=== PATIENT | male | born 1970 | race Asian ===

== ENCOUNTER 2017-11-28 10:22 | Emergency (ER) | payer MEDICAID, OTHER ==
[~2017-11-28] VITALS: Ht 157.5 cm; Wt 77.7 kg
[~2017-11-28 10:22] MED LIST: BENA10TA3 PO; DIVA500T52 PO; HALO10TA15 PO; SIMV-261 PO; ZIPR80CA2 PO
[2017-11-28] MEDS ORDERED: DIVALPROEX SODIUM 500 MG ER TABLET PO ONE (11:15)
[2017-11-28] MEDS ORDERED: HALOPERIDOL 5 MG TABLET PO ONE (11:15)
[2017-11-28] MEDS ORDERED: ZIPRASIDONE HCL 40 MG CAPSULE PO ONE (11:15)
[2017-11-28 11:25] LABS: AMPHET/METH SCREEN,URINE NEGATIVE (NEGATIVE); BARBITURATE SCREEN, URINE NEGATIVE (NEGATIVE); BENZODIAZEPINES SCREEN,URINE NEGATIVE (NEGATIVE); CANNABINOID SCREEN,URINE NEGATIVE (NEGATIVE); COCAINE SCREEN,URINE NEGATIVE (NEGATIVE); METHADONE SCREEN, URINE NEGATIVE (NEGATIVE); OPIATE SCREEN,URINE NEGATIVE (NEGATIVE); PHENCYCLIDINE SCREEN,URINE NEGATIVE (NEGATIVE)
[2017-11-28 12:04] VITALS: BP 138/73
== END 2017-11-28 12:40 | disposition home or self-care (01) ==
LOC: EMS 10:23
DX: F31.9 Bipolar disorder, unspecified (principal); R44.0 Auditory hallucinations; I10 Essential (primary) hypertension; E78.00 Pure hypercholesterolemia, unspecified; F17.210 Nicotine dependence, cigarettes, uncomplicated; Z91.14 Patient's other noncompliance with medication regimen; Z59.0 Homelessness; Z88.5 Allergy status to narcotic agent
CPT/HCPCS: 99284; 99406

== ENCOUNTER 2018-03-19 10:32 | Emergency (ER) | payer OTHER ==
[~2018-03-19] VITALS: Ht 172.7 cm; Wt 81.8 kg
[2018-03-19 10:48] LABS: GLUCOSE,POINT OF CARE 120 MG/DL (70-110)
[2018-03-19] MEDS ORDERED: NALOXONE HCL 1 MG/ML 2 ML SYG IVP ONE (11:00)
[2018-03-19 11:03] LABS: BASOPHILS % (AUTO) 0.7 % (0.0-2.0); EOSINOPHILS % (AUTO) 1.3 % (1.0-6.0); HEMOGLOBIN 15.5 g/dL (13.5-17.5); LYMPHOCYTES # (AUTO) 1.8 K/uL (1.0-4.8); LYMPHOCYTES % (AUTO) 19.5 % (22.0-44.0); MEAN CORPUSCULAR HEMOGLOBIN 27.8 pg (26.0-34.0); MEAN CORPUSCULAR HGB CONC 34.5 G/dL (31.0-37.0); MEAN CORPUSCULAR VOLUME 80 fL (80-100); MONOCYTES # (AUTO) 0.6 K/uL (0.1-1.0); MONOCYTES % (AUTO) 6.9 % (2.0-9.0); NEUTROPHILS # (AUTO) 6.6 K/uL (1.8-7.7); NEUTROPHILS % (AUTO) 71.6 % (40.0-70.0); PLATELET COUNT (AUTO) 279 K/uL (150-450); RED BLOOD CELL COUNT(AUTO) 5.59 MIL/uL (4.50-5.90); RED CELL DISTRIBUTION WIDTH 13.9 % (11.5-14.5)
[2018-03-19 11:11] LABS: PROTHROMBIN TIME 10.1 SEC (9.4-11.6)
[2018-03-19 11:20] LABS: ANION GAP 10 mmol/L (8-16); CARBON DIOXIDE 26 mmol/L (22-29); CHLORIDE 103 mmol/L (98-107); CREATININE 0.91 mg/dL (0.60-1.30); GLOMERULAR FILTR. RATE CALC > 60 mL/min (>60); GLUCOSE,RANDOM 119 mg/dL (70-110); POTASSIUM 3.8 mmol/L (3.5-5.1); SODIUM SERUM 139 mmol/L (136-145); UREA NITROGEN, BLOOD 19 mg/dL (7-18)
[2018-03-19 11:27] LABS: ALANINE AMINOTRANSFERASE 52 U/L (12-78); ALBUMIN 4.1 g/dL (3.4-5.0); ALKALINE PHOSPHATASE 104 U/L (46-116); ASPARTATE AMINOTRANSFERASE 30 U/L (15-37); BILIRUBIN,TOTAL 0.5 mg/dL (0.1-1.0)
[2018-03-19] MEDS ORDERED: SODIUM CHLORIDE 0.9% 1,000 ML IV ONE (11:45)
[2018-03-19 11:51] LABS: AMPHET/METH SCREEN,URINE NEGATIVE (NEGATIVE); BARBITURATE SCREEN, URINE NEGATIVE (NEGATIVE); BENZODIAZEPINES SCREEN,URINE NEGATIVE (NEGATIVE); CANNABINOID SCREEN,URINE NEGATIVE (NEGATIVE); COCAINE SCREEN,URINE NEGATIVE (NEGATIVE); METHADONE SCREEN, URINE NEGATIVE (NEGATIVE); OPIATE SCREEN,URINE NEGATIVE (NEGATIVE)
[2018-03-19 11:52] LABS: PHENCYCLIDINE SCREEN,URINE NEGATIVE (NEGATIVE)
[2018-03-19 11:53] LABS: AMMONIA 20 umol/L (11-32)
[2018-03-19 11:55] LABS: TROPONIN I < 0.02 ng/mL (0.00-0.05)
[2018-03-19 12:22] LABS: BILIRUBIN,URINE NEGATIVE (NEGATIVE); GLUCOSE, URINE (UA) NEGATIVE (NEGATIVE); KETONES,URINE 15 mg/dL (NEGATIVE); LEUKOCYTE ESTERASE ,URINE NEGATIVE (NEGATIVE); NITRATE,URINE NEGATIVE (NEGATIVE); OCCULT BLOOD,URINE TRACE (NEGATIVE); PROTEIN,URINE NEGATIVE (NEGATIVE); UROBILINOGEN,URINE 0.2 mg/dL (<=1.0)
[2018-03-19 12:25] LABS: APPEARANCE,URINE SLIGHTLY CLOUDY (CLEAR); BACTERIA,URINE Few /HPF (None Seen); RBC,URINE 0-2 /HPF (0-2); WBC,URINE 0-2 /HPF (0-5)
[2018-03-19 12:25] LABS: CREATINE KINASE MB 2.7 ng/mL (0-5); CREATINE KINASE, TOTAL 181 U/L (39-308); VALPROIC ACID 8 mcg/mL (50-100)
[2018-03-19 12:29] LABS: SQUAMOUS EPITHELIAL CELL,UR Rare /LPF (None Seen)
[2018-03-19 12:30] LABS: AMORPHOUS SEDIMENT,UR Many /LPF (None Seen)
[2018-03-19 14:50] VITALS: BP 144/90
== END 2018-03-19 15:03 | disposition home or self-care (01) ==
LOC: EMS 10:33
DX: F25.9 Schizoaffective disorder, unspecified (principal); I10 Essential (primary) hypertension; E78.00 Pure hypercholesterolemia, unspecified; F17.210 Nicotine dependence, cigarettes, uncomplicated; Z88.8 Allergy status to other drugs, medicaments and biological substances
CPT/HCPCS: 36415; 51702; 70450; 72125; 80053; 80164; 80307; 81001; 82140; 82550; 82553; 82962; 84484; 85025; 85610; 85730; 93005; 96361; 96374; 99285; 99406; G0480; J7030